=== PATIENT | male | born 1970 | race Caucasian/White ===

== ENCOUNTER 2024-11-19 11:26 | Emergency (ER) | payer OTHER ==
[~2024-11-19] VITALS: Ht 193 cm; Wt 115.7 kg
[2024-11-19] MEDS ORDERED: KETOROLAC TROMETHAMINE INJ 60 MG/2 ML VIAL IM ONE (11:58)
[2024-11-19] MEDS: KETOROLAC TROMETHAMINE INJ 30 MG/ML VIAL IM ONE (12:05)
[2024-11-19] MEDS ORDERED: CLIN300C12 PO ×2 (13:46→14:26)
[2024-11-19 14:26] VITALS: BP 144/92; TEMP 98.1; O2SAT 98
== END 2024-11-19 14:27 | disposition home or self-care (01) ==
LOC: ER 11:51
DX: L03.115 Cellulitis of right lower limb (principal); R05.9 Cough, unspecified
CPT/HCPCS: 99285; 93971; 96372; 73610; 84550; 36415; J1885

== ENCOUNTER 2024-11-30 12:15 | Emergency (ER) | payer OTHER ==
[~2024-11-30] VITALS: Ht 193 cm; Wt 117.9 kg
[~2024-11-30 12:15] MED LIST: CLIN300C12 PO
[2024-11-30] MEDS ORDERED: KETOROLAC TROMETHAMINE 15 MG/ML VIAL ONE (13:11)
[2024-11-30] MEDS: KETOROLAC TROMETHAMINE 15 MG/ML VIAL IM ONE (13:16)
[2024-11-30] MEDS ORDERED: NAPR-1009 PO (13:54)
[2024-11-30] MEDS ORDERED: ACET-2605 PO (13:54)
[2024-11-30] MEDS ORDERED: HYDR-3972 PO (13:54)
[2024-11-30 14:01] VITALS: BP 137/89; TEMP 98.8; O2SAT 96
== END 2024-11-30 14:02 | disposition home or self-care (01) ==
LOC: ER 12:19
DX: M70.42 Prepatellar bursitis, left knee (principal); G89.29 Other chronic pain
CPT/HCPCS: 99283; 96372; J1885

== ENCOUNTER 2024-12-10 12:03 | Emergency (ER) | payer OTHER ==
[~2024-12-10] VITALS: Ht 190.5 cm; Wt 117.9 kg
[~2024-12-10 12:03] MED LIST changes: +ACET-2605 PO; +HYDR-3972 PO; +NAPR-1009 PO
[2024-12-10 12:16] VITALS: BP 140/91; TEMP 98.3
[2024-12-10 13:16] LABS: CALCIUM, SERUM 9.9 mg/dL (8.5-10.1); CREATININE 1.2 mg/dL (0.6-1.3); POTASSIUM 4.6 mmol/L (3.5-5.1)
[2024-12-10 13:18] LABS: BASOPHILS % (AUTO) 0.4 % (0.0-2.0); EOSINOPHILS % (AUTO) 0.2 % (0.0-6.0); HEMATOCRIT 37 % (39-51); HEMOGLOBIN 12.8 g/dL (13.5-17.5); LYMPHOCYTES # (AUTO) 1.4 K/uL (0.8-4.8); LYMPHOCYTES % (AUTO) 13.3 % (20.0-44.0); MEAN CORPUSCULAR HEMOGLOBIN 30 PG (26.0-33.0); MEAN CORPUSCULAR HGB CONC 34 g/dl (31.0-36.0); MEAN CORPUSCULAR VOLUME 88 fL (80-96); MONOCYTES % (AUTO) 9.7 % (2.0-12.0); NEUTROPHILS # (AUTO) 8.1 K/uL (1.8-8.9); NEUTROPHILS % (AUTO) 76.4 % (43.0-81.0); PLATELET COUNT (AUTO) 295 K/uL (150-450); RED BLOOD CELL COUNT(AUTO) 4.21 MIL/uL (4.5-6.0); RED CELL DISTRIBUTION WIDTH 12.4 % (11.5-15.0); WHITE BLOOD COUNT (AUTO) 10.6 K/uL (4.3-11.0)
[2024-12-10] MEDS ORDERED: KETOROLAC TROMETHAMINE INJ 30 MG/ML VIAL ONE (13:26)
[2024-12-10] MEDS ORDERED: methylPREDNISolone SOD SUCC 125 MG/2ML VIAL ONE (13:26)
[2024-12-10 13:27] LABS: ERYTHROCYTE SEDIMENTATION RATE 68 MM/HR (0-20)
[2024-12-10] MEDS: methylPREDNISolone SOD SUCC 125 MG/2ML VIAL IM ONE (13:40)
[2024-12-10] MEDS: KETOROLAC TROMETHAMINE INJ 30 MG/ML VIAL IM ONE (13:42)
[2024-12-10] MEDS: KETOROLAC TROMETHAMINE INJ 30 MG/ML VIAL IV ONE (13:48)
[2024-12-10] MEDS: methylPREDNISolone SOD SUCC 125 MG/2ML VIAL IV ONE (13:48)
[2024-12-10] MEDS ORDERED: KETO10TA2 PO (13:56)
[2024-12-10] MEDS ORDERED: HYDR-3980 PO (13:56)
[2024-12-10 14:23] VITALS: O2SAT 98
[2024-12-11 10:07] LABS: *ANA ANTI-CENTROMERE B AB <0.2 AI (0.0-0.9); *ANA ANTI-DNA(DS) AB, QN <1 IU/mL (0-9); *ANA ANTI-JO-1 <0.2 AI (0.0-0.9); *ANA ANTICHROMATIN ANTIBODY <0.2 AI (0.0-0.9); *ANA RNP ANTIBODIES 0.2 AI (0.0-0.9); *ANA SJOGREN'S ANTI-SS-A <0.2 AI (0.0-0.9); *ANA SJOGREN'S ANTI-SS-B <0.2 AI (0.0-0.9); *ANAANTI-SCLERODERMA-70 AB <0.2 AI (0.0-0.9); *ANASMITH AB <0.2 AI (0.0-0.9)
== END 2024-12-10 14:24 | disposition home or self-care (01) ==
LOC: ER 12:07
DX: M25.562 Pain in left knee (principal); M25.472 Effusion, left ankle; Z79.899 Other long term (current) drug therapy
CPT/HCPCS: 99284; 96372 ×2; 73610; 73564; 85025; 80048; 85652; 36415; 83880; 86140; 86225; 86235 ×8; J1885; J2919

== ENCOUNTER 2025-03-05 11:43 | Emergency (ER) | payer OTHER ==
[~2025-03-05] VITALS: Ht 193 cm; Wt 106.6 kg
[~2025-03-05 11:43] MED LIST changes: +HYDR-3980 PO; +KETO10TA2 PO
[2025-03-05] MEDS ORDERED: CLIN300C12 PO (12:35)
[2025-03-05] MEDS ORDERED: INDO50CA92 PO (12:35)
[2025-03-05] MEDS ORDERED: COLC0.6T67 PO (12:35)
[2025-03-05] MEDS ORDERED: COLCHICINE 0.6 MG TABLET ONE (12:38)
[2025-03-05] MEDS ORDERED: KETOROLAC TROMETHAMINE INJ 30 MG/ML VIAL ONE (12:38)
[2025-03-05] MEDS: COLCHICINE 0.6 MG TABLET PO ONE (12:42)
[2025-03-05] MEDS: KETOROLAC TROMETHAMINE INJ 30 MG/ML VIAL IM ONE (12:43)
[2025-03-05 12:54] VITALS: BP 145/80; TEMP 98.1; O2SAT 100
== END 2025-03-05 12:55 | disposition home or self-care (01) ==
LOC: ER 12:08
DX: M79.89 Other specified soft tissue disorders (principal); M25.571 Pain in right ankle and joints of right foot; M25.572 Pain in left ankle and joints of left foot; Z79.899 Other long term (current) drug therapy
CPT/HCPCS: 99283; 96372; J1885